=== PATIENT | male | born 1995 | race African-American/Black ===

== ENCOUNTER 2022-07-10 15:29 | Emergency (ER) | payer OTHER ==
[2022-07-10 15:40] VITALS: BP 125/83; PULSE 79; RESP 18; TEMP 98.4; BMI 25.0
[2022-07-10] MEDS ORDERED: CYCLOBENZAPRINE HCL 10 MG TABLET (FP) PO ONE (17:02)
[2022-07-10] MEDS ORDERED: LIDOCAINE 5% TOPICAL PATCH TP ONE (17:02)
[2022-07-10] MEDS ORDERED: ACETAMINOPHEN 500 MG TABLET (FP) PO ONE (17:02)
[2022-07-10] MEDS ORDERED: ACETAMINOPHEN 500 MG TABLET (FP) ONE (18:03)
[2022-07-10] MEDS ORDERED: CYCLOBENZAPRINE HCL 10 MG TABLET (FP) ONE (18:03)
[2022-07-10] MEDS ORDERED: LIDOCAINE 5% TOPICAL PATCH ONE (18:03)
[2022-07-11] MEDS ORDERED: LIDOCAINE PATCH REMOVAL MC SCH (06:00)
== END 2022-07-10 18:09 | disposition home or self-care (01) ==
LOC: JERFT 15:29
DX: M54.2 Cervicalgia (principal)
CPT/HCPCS: 71046-TC-FY; 73030-TC-LT-FY; 99284-25